=== PATIENT | male | born 1995 | race African-American/Black ===

== ENCOUNTER 2016-09-29 14:45 | Emergency (ER) | payer BC, OTHER ==
[~2016-09-29] VITALS: Ht 177.8 cm; Wt 89.1 kg
[2016-09-29 14:50] VITALS: Ht 177.8 cm; Wt 89.1 kg
[2016-09-29] MEDS ORDERED: LORA-441 PO (16:57)
[2016-09-29] MEDS ORDERED: LORAZEPAM 1 MG TAB PO ONE (17:00)
--- NOTE | 2016-09-29 17:38 | ERD ---
ER Documentation Chief Complaint Date/Time DATE: 09/29/16 TIME: 17:34 Chief Complaint feels anxious HPI This is a 20-year-old male who presents to the ER stating that he has been feeling anxiety, and depression for the last few months. Patient presents with his mother and states that he does not know why he feels anxious or depressed. He is currently in college. 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 Patient has friends and does not work. Patient denies any suicidal, homicidal ideations. His mother is aware that he is going to hurt himself, however upon questioning patient states he does not want to hurt himself. Patient was given referrals to see mental health in the past however patient wants to go. Patient denies any chest pain or shortness of breath. He denies any palpitations. ROS 12 point review of systems was done, all negative except per HPI. Medications Home Meds Active Scripts Lorazepam* (Ativan*) 0.5 Mg Tablet, 0.5 MG PO Q8, #10 TAB Prov:DELONTE ROCAROLY Gómez 09/29/16 PMhx/Soc Medical and Surgical Hx: pt denies Medical Hx, pt denies Surgical Hx Physical Exam Vitals Vital Signs Date Time Temp Pulse Resp B/P Pulse Ox O2 Delivery O2 Flow Rate FiO2 09/29/16 14:50 98.1 74 20 140/74 99 Physical Exam GENERAL: The patient is well developed and appropriate for usual state of health , in no apparent distress. HEENT: Atraumatic. Conjunctivae are pink. Pupils equal, round, and reactive to light. Extraocular muscles are grossly intact. Bilateral tympanic membranes are clear with no evidence of erythema, effusion or dulling of the light reflex. The oropharynx is clear with no erythema or exudates. NECK: C-spine is soft and supple. There is no cervical lymphadenopathy. CHEST: Clear to auscultation bilaterally. There are no rales, wheezes or rhonchi. HEART: Regular rate and rhythm. No murmurs, clicks, rubs or gallops. ABDOMEN: Soft, nontender and nondistended. Good bowel sounds. No rebound or guarding. No gross peritonitis. No gross organomegaly or masses. No Schmidt sign or McBurney point tenderness. No pulsatile masses. BACK: No midline or flank tenderness. EXTREMITIES: Equal pulses bilaterally. There is no peripheral clubbing, cyanosis or edema. No focal swelling or erythema. Full range of motion. Grossly neurovascularly intact. NEURO: Alert and oriented. Cranial nerves II through XII are intact. Motor strength in all 4 extremities with 5/5 strength. Sensation grossly intact. Normal speech and gait. SKIN: There is no apparent rash or petechia. The skin is warm and dry. Results 24 hrs Current Medications Medications (Trade) Dose Ordered Sig/Paulino Route PRN Reason Start Time Stop Time Status Last Admin Dose Admin Lorazepam (Ativan) 1 mg ONCE ONCE PO 09/29/16 17:00 09/29/16 17:01 DC 09/29/16 17:11 Procedures/MDM This is a 20-year-old male presents to the ER with anxiety and depression. Patient's has denied any other symptoms. Patient has denied any suicidal or homicidal ideations. He will be sent home with lorazepam. I gave patient multiple resources to see mental health. Patient is to follow-up with his primary care doctor and see a psychologist or psychiatrist as soon as possible. Patient with medical decision making with mother and the patient they both understand and agree with plan. Departure Diagnosis: Primary Impression: Anxiety attack Condition: Stable Patient Instructions: Anxiety Reaction Referrals: HAYLEY CONROY PAUL L FAGHFOORY, AMIR P. MD FARRAG, HASSAN S. MD KATZ, MARINA MD Additional Instructions: Call your primary care doctor TOMORROW for an appointment during the next 1-2 days.See the doctor sooner or return here if your condition worsens before your appointment time. NIRMALA ROAC Sep 29, 2016 17:37
== END 2016-09-29 17:15 | disposition home or self-care (01) ==
LOC: FTE 14:45
DX: F41.0 Panic disorder [episodic paroxysmal anxiety] (principal)
CPT/HCPCS: Z7502; Z7610; 99283

== ENCOUNTER 2016-10-03 18:48 | Emergency (ER) | payer BC ==
[~2016-10-03] VITALS: Ht 188 cm; Wt 104.2 kg
[~2016-10-03 18:48] MED LIST: LORA-441 PO
[2016-10-03 18:51] VITALS: Ht 188 cm; Wt 104.2 kg
[2016-10-03 19:56] LABS: BASOPHILS % 0.5 % (0.0-2.0); EOSINOPHILS # 0.1 10^3/ul (0.0-0.5); EOSINOPHILS % 0.6 % (0.0-7.0); HEMATOCRIT 48.5 % (42.0-52.0); HEMOGLOBIN 16.8 g/dl (14.0-18.0); LYMPHOCYTES # 3.1 10^3/ul (0.8-2.9); LYMPHOCYTES % 33.8 % (18.0-55.0); MEAN CORPUSCULAR HEMOGLOBIN 31.6 pg (29.0-33.0); MEAN CORPUSCULAR HGB CONC 34.6 g/dl (32.0-37.0); MEAN CORPUSCULAR VOLUME 91.4 fl (72.0-104.0); MEAN PLATELET VOLUME 8.2 fl (7.4-10.4); MONOCYTE # 0.4 10^3/ul (0.3-0.9); MONOCYTES % 4.9 % (0.0-13.0); NEUTROPHIL # 5.4 10^3/ul (1.6-7.5); NEUTROPHILS % 60.2 % (30.0-74.0); PLATELET COUNT 261 10^3/UL (140-440); RED BLOOD COUNT 5.31 10^6/ul (4.70-6.10); RED CELL DISTRIBUTION WIDTH 12.9 % (11.5-14.5)
[2016-10-03 19:57] LABS: CONDITION 1
[2016-10-03 20:07] LABS: ADD UMIC NO; URINE BILIRUBIN (Dip) NEGATIVE (NEGATIVE); URINE BLOOD (Dip) NEGATIVE (NEGATIVE); URINE COLOR LT. YELLOW (YELLOW); URINE GLUCOSE (Dip) NEGATIVE (NEGATIVE); URINE KETONES (Dip) NEGATIVE (NEGATIVE); URINE LEUKOCYTE ESTERASE (Dip) NEGATIVE (NEGATIVE); URINE NITRITE (Dip) NEGATIVE (NEGATIVE); URINE TOTAL PROTEIN (Dip) NEGATIVE (NEGATIVE); URINE UROBILINOGEN (Dip) 1.0 E.U./dL (0.1-1.0)
[2016-10-03 20:14] LABS: ALBUMIN 4.9 g/dl (3.3-4.9)
[2016-10-03 20:15] LABS: CHLORIDE 102 mmol/L (97-110); SODIUM 145 mmol/L (135-144)
[2016-10-03 20:17] LABS: ALBUMIN/GLOBULIN RATIO 1.68; ANION GAP 17 (8-16); ASPARTATE AMINO TRANSFERASE 44 IU/L (15-46); BILIRUBIN,INDIRECT 0.5 mg/dl (0-1.1); BILIRUBIN,TOTAL 0.5 mg/dl (0.2-1.3); CARBON DIOXIDE 30 mmol/L (21-31); CREATININE 1.01 mg/dl (0.61-1.24); TOTAL PROTEIN 7.8 g/dl (6.1-8.1)
[2016-10-03 20:18] LABS: ALANINE AMINOTRANSFERASE 45 IU/L (13-69); ALKALINE PHOSPHATASE 65 IU/L (42-121); BLOOD UREA NITROGEN 15 mg/dl (7-20); CALCIUM 9.5 mg/dl (8.4-10.2); GLUCOSE 88 mg/dl (70-220)
[2016-10-03 20:21] LABS: ACETAMINOPHEN < 10.0 ug/ml (10.0-30.0)
[2016-10-03 20:22] LABS: ETHANOL < 10.0 mg/dl; SALICYLATE < 1.0 mg/dl (5.0-30.0)
[2016-10-03 20:43] LABS: BARBITURATES Negative (NEGATIVE); BENZODIAZEPINES Negative (NEGATIVE); CANNABINOIDS Negative (NEGATIVE); COCAINE Negative (NEGATIVE); OPIATES Negative (NEGATIVE)
--- NOTE | 2016-10-03 21:47 | ERA ---
ER Documentation Chief Complaint Date/Time DATE: 10/03/16 TIME: 21:46 Chief Complaint Anxiety, agitation and SI HPI This is a 20-year-old male presents to the emergency room with his mother for evaluation of anxiety, agitation and suicidal ideation. This patient does state that he sometimes feels like hurting other people however he has not been anyone in specific detail. According to the patient's mother this patient has been acting abnormally for the past few months after he returns from college. The patient denies taking any drugs or alcohol. Most of the history is obtained from mother as patient is unwilling to answer questions at this time ROS All systems reviewed and are negative except as per history of present illness. Medications Home Meds Active Scripts Lorazepam* (Ativan*) 0.5 Mg Tablet, 0.5 MG PO Q8, #10 TAB Prov:NIRMALA ROCA 09/29/16 PMhx/Soc History of Surgery: No Anesthesia Reaction: No Hx Neurological Disorder: No Hx Respiratory Disorders: No Hx Cardiac Disorders: No Hx Psychiatric Problems: Yes (DEPRESSION AND ANXIETY) Hx Miscellaneous Medical Probl: Yes (LEFT KNEE PAIN FROM SPORTS) Hx Alcohol Use: No Hx Substance Use: No Hx Tobacco Use: No Smoking Status: Never smoker Physical Exam Vitals Vital Signs Date Time Temp Pulse Resp B/P Pulse Ox O2 Delivery O2 Flow Rate FiO2 10/03/16 20:14 98.3 70 18 120/77 100 Room Air 10/03/16 18:51 98.3 84 18 131/81 97 Physical Exam INITIAL VITAL SIGNS: Reviewed by me GENERAL: The patient is well developed and appropriate for usual state of health in no apparent distress HEENT: Pupils equal, round, and reactive to light. EOMI. There is no scleral icterus. NECK: C-spine is soft and supple, there is no meningismus. There is no cervical lymphadenopathy. LUNGS: Clear to auscultation bilaterally. There are no rales, wheezes or rhonchi. HEART: Regular rate and rhythm, no murmurs, clicks, rubs or gallops. ABDOMEN: Soft, non-tender, non-distended. There are bowel sounds in all four quadrants. No rebound or guarding. EXTREMITIES: There is no peripheral cyanosis or edema. No focal swelling or erythema. NEUROLOGICAL: The patient moves all four extremities with 5/5 strength. Cranial nerves II - XII are intact. Normal gait. Alert and oriented SKIN: There is no apparent rash or petechiae. HEME/LYMPHATIC: There is no evidence of excessive bruising or lymphedema. PSYCHIATRIC: The patient has a flat affect Result Diagram: 10/03/16192510/03/161925 Results 24 hrs Laboratory Tests Test 10/03/16 19:26 Acetaminophen Level < 10.0ug/ml Alanine Aminotransferase (ALT/SGPT) 45IU/L Albumin 4.9g/dl Albumin/Globulin Ratio 1.68 Alkaline Phosphatase 65IU/L Anion Gap 17 Aspartate Amino Transf (AST/SGOT) 44IU/L Basophils # 0.010^3/ul Basophils % 0.5% Blood Urea Nitrogen 15mg/dl Calcium Level 9.5mg/dl Carbon Dioxide Level 30mmol/L Chloride Level 102mmol/L Creatinine 1.01mg/dl Direct Bilirubin 0.00mg/dl Eosinophils # 0.110^3/ul Eosinophils % 0.6% Ethyl Alcohol Level < 10.0mg/dl Globulin 2.90g/dl Glucose Level 88mg/dl Hematocrit 48.5% Hemoglobin 16.8g/dl Indirect Bilirubin 0.5mg/dl Lymphocytes # 3.110^3/ul Lymphocytes % 33.8% Mean Corpuscular Hemoglobin 31.6pg Mean Corpuscular Hemoglobin Concent 34.6g/dl Mean Corpuscular Volume 91.4fl Mean Platelet Volume 8.2fl Monocytes # 0.410^3/ul Monocytes % 4.9% Neutrophils # 5.410^3/ul Neutrophils % 60.2% Nucleated Red Blood Cells # 0.010^3/ul Nucleated Red Blood Cells % 0.0/100WBC Platelet Count 38858^3/UL Potassium Level 4.0mmol/L Red Blood Count 5.3110^6/ul Red Cell Distribution Width 12.9% Salicylates Level < 1.0mg/dl Sodium Level 145mmol/L Total Bilirubin 0.5mg/dl Total Protein 7.8g/dl Urine Amphetamines Screen Negative Urine Barbiturates Negative Urine Benzodiazepines Screen Negative Urine Bilirubin NEGATIVE Urine Cannabinoids Negative Urine Clarity CLEAR Urine Cocaine Screen Negative Urine Color LT. YELLOW Urine Glucose NEGATIVE% Urine Hemoglobin NEGATIVE Urine Ketones NEGATIVE Urine Leukocyte Esterase NEGATIVE Urine Nitrite NEGATIVE Urine Opiates Screen Negative Urine Specific [place] 1.025 Urine Total Protein NEGATIVE Urine Urobilinogen 1.0 E.U./dL Urine pH 6.5 White Blood Count 9.010^3/ul Procedures/MDM This 20-year-old male presents to the emergency room for evaluation of agitation , suicidal ideation and depression. This patient had a flat affect on my examination and history is obtained from mother. This patient did undergo medical clearance by myself. He was seen and evaluated by tele-psych physician who agrees this patient is to be on a 5150 hold. This patient will be evaluated by our psychiatric team and transfer to inpatient facility when a bed becomes available Departure Diagnosis: Primary Impression: Suicidal ideation Additional Impression: Agitation Condition: Stable BRENDAN HIGUERA DO Oct 03, 2016 21:47
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
[2016-10-04 07:40] VITALS: BP 129/74; PULSE 64; RESP 18; TEMP 98
== END 2016-10-04 07:41 ==
LOC: E/R 18:48
DX: R45.1 Restlessness and agitation (principal); R45.851 Suicidal ideations; R40.2142 Coma scale, eyes open, spontaneous, at arrival to emergency department; R40.2362 Coma scale, best motor response, obeys commands, at arrival to emergency department; R40.2252 Coma scale, best verbal response, oriented, at arrival to emergency department
CPT/HCPCS: 36415; 80053; 80306; 80307; 81003; 85025; Z7502; 99285

== ENCOUNTER 2016-10-08 20:05 | Emergency (ER) | payer BC ==
[~2016-10-08] VITALS: Wt 104.5 kg
--- NOTE | 2016-10-08 21:29 | ERA ---
ER Documentation Chief Complaint Date/Time DATE: 10/08/16 TIME: 21:28 Chief Complaint left knee pain x 6 months. mom wants psyche eval. HPI The patient is a 20-year-old male, presenting to the ER because of colicky left knee pain for more than 6 months and agitation when the mother picked him up for a psychiatric hospital about 3 PM today. He was agitated to what the mother. She was therefore brought him to the hospital and wanted a psychiatric evaluation. He denies suicidal, homicidal thoughts, auditory, visual hallucination. He was an x-ray of the left knee, denies any recent trauma. He denies headache, neck pain, chest pain, abdominal pain, vomiting, dysuria, diarrhea. Past medical history: Depression, anxiety, history of psychosis ROS All systems reviewed and are negative except as per history of present illness. Medications Home Meds Active Scripts Lorazepam* (Ativan*) 0.5 Mg Tablet, 0.5 MG PO Q8, #10 TAB Prov:NIRMALA ROCA 09/29/16 Reported Medications Fluoxetine Hcl* (Fluoxetine Hcl*) 10 Mg Tablet, 10 MG PO DAILY, TAB 10/08/16 Quetiapine Fumarate* (Seroquel*) 50 Mg Tablet, 50 MG PO HS, TAB 10/08/16 Allergies Allergies: Coded Allergies: No Known Drug Allergies (Verified Allergy, Unknown, 10/08/16) PMhx/Soc History of Surgery: No Anesthesia Reaction: No Hx Neurological Disorder: No Hx Respiratory Disorders: No Hx Cardiac Disorders: No Hx Psychiatric Problems: Yes (DEPRESSION AND ANXIETY) Hx Miscellaneous Medical Probl: Yes (LEFT KNEE PAIN FROM SPORTS) Hx Alcohol Use: No Hx Substance Use: No Hx Tobacco Use: No Physical Exam Vitals Vital Signs Date Time Temp Pulse Resp B/P Pulse Ox O2 Delivery O2 Flow Rate FiO2 10/08/16 21:31 98.2 98 20 136/68 99 10/08/16 20:31 98.8 108 20 148/72 99 Physical Exam Const: No acute distress. Head: Atraumatic. Eyes: Normal Conjunctiva. ENT: Normal External Ears, Nose and Mouth. Neck: Full range of motion. No meningismus. Resp: Clear to auscultation bilaterally. Cardio: Regular rate and rhythm, no murmurs. Abd: Soft, non distended, normal bowel sounds, non tender. Skin: No petechiae or rashes. Back: No midline or flank tenderness. Ext: No cyanosis, or edema. Left knee is with full range of motion, no erythema, no edema, no calf tenderness Neur: Awake and alert. No focal deficit Psych: Flat Affect. Procedures/MDM [place] [id number] Radiology Main Line: [phone] DIAGNOSTIC IMAGING REPORT Patient: JANETH POWELL : 1995 Age: 20 Sex: M MR #: [id number] DOS: 10/08/16 2143 Ordering MD: FELICE SEO MD Location: E/R Room/Bed: PROCEDURE: XR Knee. CLINICAL INDICATION: Left knee pain. TECHNIQUE: AP, lateral and oblique views of the left knee were obtained. The images reviewed on a PACS workstation. COMPARISON: None. FINDINGS: The bones appear intact, with no evidence of fracture, erosion, demineralization , or dislocation. The alignment of the femorotibial and patellofemoral joints appears normal. No joint space narrowing is seen. No evidence of a joint effusion is seen. No soft tissue swelling is present. IMPRESSION: Unremarkable examination of the left knee. RPTAT: HPNM Physician Gus Date Time Electronically viewed and signed by Physician Gus on 10/08/2016 22 :21 / CC: FELICE SEO MD MEDICAL MAKING DECISION: The patient is a 20-year-old male, presenting with acute psychosis, chronic left knee pain of unclear etiology. He was treated with Motrin 600 mg p.o. for pain. He was evaluated by telepsychiatrist Dr Fernandes recommended 5150 hold. The differential diagnoses considered include but are not limited to psychosis, drug-induced psychosis, decompensated psychiatric illness Departure Diagnosis: Primary Impression: Psychosis Additional Impression: Left knee pain Condition: Stable Comments He is currently awaiting for PET evaluation He was advised that he would need to have MRI of the left knee for further evaluation if the pain is persistent The patient's blood pressure was elevated (>120/80) but appears stable without evidence of hypertension emergency or urgency. The patient was counseled about the risks of hypertension and urged to pursue outpatient monitoring and therapy within a week after discharge with their primary care physician. FELICE SEO MD Oct 08, 2016 21:29
[2016-10-08] MEDS ORDERED: QUET50TA16 PO (22:14)
[2016-10-08] MEDS ORDERED: FLUO10TA PO (22:14)
[2016-10-08 22:17] LABS: ADD SCAN DIFF NO
--- NOTE | 2016-10-08 22:21 | RADRPT ---
PROCEDURE: XR Knee. CLINICAL INDICATION: Left knee pain. TECHNIQUE: AP, lateral and oblique views of the left knee were obtained. The images reviewed on a PACS workstation. COMPARISON: None. FINDINGS: The bones appear intact, with no evidence of fracture, erosion, demineralization, or dislocation. T he alignment of the femorotibial and patellofemoral joints appears normal. No joint space narrowing is seen. No evidence of a joint effusion is seen. No soft tissue swelling is present. IMPRESSION: Unremarkable examination of the left knee. RPTAT: HPNM Physician Gus Date Time Electronically viewed and signed by Physician Gus on 10/08/2016 22:21 /
[2016-10-08 22:37] LABS: ALBUMIN 4.9 g/dl (3.3-4.9)
[2016-10-08 22:38] LABS: CHLORIDE 101 mmol/L (97-110); POTASSIUM 4.6 mmol/L (3.5-5.1); SODIUM 144 mmol/L (135-144)
[2016-10-08 22:40] LABS: ALANINE AMINOTRANSFERASE 51 IU/L (13-69); ALBUMIN/GLOBULIN RATIO 1.68; ALKALINE PHOSPHATASE 67 IU/L (42-121); ANION GAP 18 (8-16); ASPARTATE AMINO TRANSFERASE 38 IU/L (15-46); BILIRUBIN,INDIRECT 0.4 mg/dl (0-1.1); BILIRUBIN,TOTAL 0.4 mg/dl (0.2-1.3); BLOOD UREA NITROGEN 12 mg/dl (7-20); CARBON DIOXIDE 30 mmol/L (21-31); CREATININE 1.13 mg/dl (0.61-1.24); TOTAL PROTEIN 7.8 g/dl (6.1-8.1)
[2016-10-08 22:41] LABS: GLUCOSE 92 mg/dl (70-220)
[2016-10-08 22:46] LABS: ACETAMINOPHEN < 10.0 ug/ml (10.0-30.0); ETHANOL < 10.0 mg/dl; SALICYLATE < 1.0 mg/dl (5.0-30.0)
[2016-10-08 22:47] LABS: BASOPHIL # 0.1 10^3/ul (0.0-0.1); BASOPHILS % 0.7 % (0.0-2.0); EOSINOPHILS % 0.4 % (0.0-7.0); HEMATOCRIT 46.9 % (42.0-52.0); HEMOGLOBIN 16.3 g/dl (14.0-18.0); LYMPHOCYTES # 2.7 10^3/ul (0.8-2.9); LYMPHOCYTES % 31.3 % (18.0-55.0); MEAN CORPUSCULAR HEMOGLOBIN 30.9 pg (29.0-33.0); MEAN CORPUSCULAR HGB CONC 34.8 g/dl (32.0-37.0); MEAN PLATELET VOLUME 9.5 fl (7.4-10.4); MONOCYTE # 0.5 10^3/ul (0.3-0.9); MONOCYTES % 6.3 % (0.0-13.0); NEUTROPHIL # 5.2 10^3/ul (1.6-7.5); NEUTROPHILS % 61.2 % (30.0-74.0); PLATELET COUNT 263 10^3/UL (140-415); RED BLOOD COUNT 5.27 10^6/ul (4.70-6.10); RED CELL DISTRIBUTION WIDTH 11.8 % (11.5-14.5); WHITE BLOOD COUNT 8.5 10^3/ul (4.8-10.8)
--- NOTE | 2016-10-08 22:48 | PSY ---
Date/Time of Note Date/Time of Note DATE: 10/08/16 TIME: 22:41 Psychiatric Subjective Eval Consent Pt consented to telemedicine: Yes Subjective Evaluation Patient location: emergency Chief Complaint: left knee pain x 6 months. mom wants psyche eval. Reason for consult: SI/HI History of present illness Pt is a 20 year old male who was discharged from a psychiatric facility today. He had been there for four days. He was admitted for "anxiety, depression, suicide and wanting to harm my mom." He was picked up by his mom and, as soon as he got into the car, he started yelling at her, screaming at her, cursing at her and mumbling. She got him home and called the inpatient facility. She was told he had not been like this at the hospital and encouraged her to get his medication. Patient then reported knee pain and was brought to the ER. Patient only states he had a panic attack. However, he demonstrates prolonged speech latency, flat affect and minimizes his situation. His affect is incongruent with the history. He is not able to provide much clinical data. Past psychiatric history See above Hospitalization: yes Family History Mental illness does run in family but mom does not know what. Medical history Problems Medical Problems: (1) Agitation Status: Acute (2) Anxiety attack Status: Acute (3) Suicidal ideation Status: Acute Allergies: Coded Allergies: No Known Drug Allergies (Verified Allergy, Unknown, 10/08/16) Substance Abuse Substance use: No known substance abuse Social History Marital status: single Level of education: N/A DPA/Conservatorship: No Occupation/Longterm: N/A Psychiatric Objective Eval Mental Status Examination: Appearance: Groomed Eye Contact: Poor Psychomotor Activity: Slow Behavior: Guarded Speech: Prolong Speech Latency AFFECT: Flat Mood: Anxious Though Process: Linear Thought Content: Other (Denies but not convincing) Suicidal: No Homicidal: No On 72 hour hold: No Orientation: x3 Cognition: Alert Insight: Impared Judgement: Impared Assessment and Plan Assessment/Diagnosis [place] I: Unspecified Affective Disorder, Rule out primary thought disorder Recommendation/Plan Medication Management Per inpatient psychiatry Psychotherapy N/A Pt. Caregiver/Family Education D/w pt's mother Follow-up/Disposition Recommend transfer to inpatient psychiatry. He had recently been admitted for si and thoughts of hurting his mother. On day of discharge, he is threatening to mother. It appears he was discharged too early and/or not stable enough for discharge. Even though he is denying acute si/hi, his behavior and clinical presentation belie these statements. Recommend 5150 for danger to self and others if he is unwilling to go voluntary. 5150 Recommendation: ARTURO Alfredo Oct 08, 2016 22:48
[2016-10-08] MEDS ORDERED: IBUPROFEN 600 MG TAB PO ONE (23:00)
[2016-10-08 23:09] LABS: ADD UMIC NO; URINE BILIRUBIN (Dip) NEGATIVE (NEGATIVE); URINE BLOOD (Dip) NEGATIVE (NEGATIVE); URINE COLOR LT. YELLOW (YELLOW); URINE GLUCOSE (Dip) NEGATIVE (NEGATIVE); URINE KETONES (Dip) NEGATIVE (NEGATIVE); URINE LEUKOCYTE ESTERASE (Dip) NEGATIVE (NEGATIVE); URINE NITRITE (Dip) NEGATIVE (NEGATIVE); URINE TOTAL PROTEIN (Dip) NEGATIVE (NEGATIVE); URINE UROBILINOGEN (Dip) 0.2 E.U./dL (0.1-1.0)
[2016-10-08 23:37] LABS: BARBITURATES Negative (NEGATIVE); BENZODIAZEPINES Negative (NEGATIVE); CANNABINOIDS Negative (NEGATIVE); COCAINE Negative (NEGATIVE); OPIATES Negative (NEGATIVE)
[2016-10-09 11:30] VITALS: BP 131/78; PULSE 75; RESP 20; TEMP 98.4
--- NOTE | 2016-10-09 12:31 | EN ---
Date/Time of Note Date/Time of Note DATE: 10/09/16 TIME: 12:30 ER Progress Note At 12:30 PM on October 09, 2016 I went to reevaluate the patient. PMR T and come and seen the patient stated that the patient did not meet criteria for 5150 and that he was safe to be discharged home. At the time of discharge the patient said he had no suicidal homicidal thoughts or ideations. He did feel comfortable being discharged home and will follow up with all of you mental health urgent care clinic. He was given all the information by the PMRT LAURENT CLINE Oct 09, 2016 12:31
== END 2016-10-09 12:50 | disposition home or self-care (01) ==
LOC: E/R 20:05
DX: F29 Unspecified psychosis not due to a substance or known physiological condition (principal)
CPT/HCPCS: 36415; 73562; 80053; 80306; 80307; 81003; 85025; Z7502; Z7610